=== PATIENT | male | born 1930 | race Asian ===

== ENCOUNTER 2017-09-23 12:59 | Outpatient (CLI) | payer SELFPAY | END 2017-09-23 22:56 | disposition home or self-care (01) | LOC: MRD 12:59 | PROVIDERS: ATTEND Internal Medicine Geriatric Medicine | DX: J40 Bronchitis, not specified as acute or chronic (principal); I51.7 Cardiomegaly; J98.2 Interstitial emphysema | CPT/HCPCS: 71046 ==